=== PATIENT | male | born 1960 | race Caucasian/White ===

== ENCOUNTER 2019-07-31 14:06 | Emergency (ER) | payer MEDICAID ==
[~2019-07-31] VITALS: Ht 177.8 cm; Wt 82.0 kg
[~2019-07-31 14:06] MED LIST: ASPI-1264 PO; ATOR40TA PO; CARV-50 PO; CLON-527 PO; COMIN IH; NIAC500C12 PO; TRAZ-89 PO; VALS160T2 PO; WEL100T PO
[2019-07-31] MEDS ORDERED: normal saline 1000ML IV soln IVB ONE (14:20)
[2019-07-31] MEDS ORDERED: ondansetron/PF 4mg/2ml inj IV ONE (14:20)
[2019-07-31 14:34] LABS: BASOPHILS # (AUTO) 0.1 X10'3 (0-0.2); BASOPHILS % (AUTO) 0.7 % (0-1); EOSINOPHILS # (AUTO) 0.1 X10'3 (0-0.9); EOSINOPHILS % (AUTO) 1.2 % (0-6); HEMATOCRIT 40.7 % (42.0-52.0); HEMOGLOBIN 13.6 g/dl (14.0-17.9); LYMPHOCYTES # (AUTO) 3.2 X10'3 (1.1-4.8); LYMPHOCYTES % (AUTO) 28.3 % (21-51); MEAN CORPUSCULAR HEMOGLOBIN 31.1 PG (27.0-31.0); MEAN CORPUSCULAR HGB CONC 33.3 g/dL (33.0-36.5); MEAN CORPUSCULAR VOLUME 93.4 FL (78-98); MEAN PLATELET VOLUME 7.9 FL (7.4-10.4); MONOCYTES # (AUTO) 1.1 X10'3 (0-0.9); MONOCYTES % (AUTO) 9.7 % (2-12); NEUTROPHILS # (AUTO) 6.7 X10'3 (1.8-7.7); NEUTROPHILS % (AUTO) 60.1 % (42-75); PLATELET COUNT 237 X10'3 (140-440); RED BLOOD COUNT 4.36 X10'6 (4.70-6.10); RED CELL DISTRIBUTION WIDTH 14.4 % (11.5-14.5); WHITE BLOOD COUNT 11.2 X10'3 (4.5-11.0)
[2019-07-31 14:45] LABS: ALANINE AMINOTRANSFERASE 18 U/L (12-78); ALBUMIN 3.7 G/DL (3.4-5.0); ALBUMIN/GLOBULIN RATIO 0.9 (1.1-1.5); ALKALINE PHOSPHATASE 113 IU/L (46-116); ANION GAP 9 (8-16); ASPARTATE AMINO TRANSFERASE 16 U/L (10-37); BILIRUBIN,TOTAL 0.6 MG/DL (0.1-1.0); BLOOD UREA NITROGEN 14 MG/DL (7-18); BUN/CREATININE RATIO 14.6 (5.4-32.0); CHLORIDE 105 MMOL/L (99-107); CREATININE 0.96 MG/DL (0.60-1.10); GLUCOSE 111 MG/DL (70-104); POTASSIUM 3.9 MMOL/L (3.5-5.1); SODIUM 140 MMOL/L (135-145); TOTAL CARBON DIOXIDE 26.1 MMOL/L (24-32); TOTAL PROTEIN 7.6 G/DL (6.4-8.2); eGFR 80 ML/MIN
[2019-07-31 14:54] LABS: ETHANOL < 0.010 GM/DL (0.0-0.010); LIPASE 124 U/L (73-393); TROPONIN I < 0.04 NG/ML (0.0-0.05)
[2019-07-31] MEDS ORDERED: LIDOcaine Viscous 15ml cup PO ONE (15:20)
[2019-07-31] MEDS ORDERED: famotidine/PF 10 mg/ml inj IV ONE (15:20)
[2019-07-31] MEDS ORDERED: sucralfate 1 gm tablet PO ONE (15:20)
[2019-07-31] MEDS ORDERED: mag hydrox/Alum hydrox/simeth 30ml oral suspension PO ONE (15:20)
[2019-07-31 16:16] VITALS: BP 133/73
== END 2019-07-31 16:17 | disposition home or self-care (01) ==
LOC: ER 14:06
DX: K29.20 Alcoholic gastritis without bleeding (principal); F10.20 Alcohol dependence, uncomplicated; I25.10 Atherosclerotic heart disease of native coronary artery without angina pectoris; Z95.0 Presence of cardiac pacemaker; Z79.82 Long term (current) use of aspirin; Z79.899 Other long term (current) drug therapy; Y90.0 Blood alcohol level of less than 20 mg/100 ml
CPT/HCPCS: 36415; 71045; 80053; 80320; 83690; 83880; 84484; 85025; 93005; 96374; 96375; 99284; J2405; J3490; J7030

== ENCOUNTER 2024-05-14 08:41 | Emergency (ER) | payer BC, MEDICAID ==
[~2024-05-14] VITALS: Ht 177.8 cm; Wt 97.5 kg
[2024-05-14 10:17] VITALS: BP 134/76; PULSE 91; RESP 16; TEMP 97.7; O2SAT 96
== END 2024-05-14 10:18 | disposition home or self-care (01) ==
LOC: ER 08:41
DX: S09.8XXA Other specified injuries of head, initial encounter (principal); H92.22 Otorrhagia, left ear; I25.10 Atherosclerotic heart disease of native coronary artery without angina pectoris; Z95.0 Presence of cardiac pacemaker; Z79.82 Long term (current) use of aspirin; Z79.899 Other long term (current) drug therapy; X58.XXXA Exposure to other specified factors, initial encounter; Y93.89 Activity, other specified; Y92.89 Other specified places as the place of occurrence of the external cause; Y99.8 Other external cause status
CPT/HCPCS: 99281